=== PATIENT | female | born 2005 | race Caucasian/White ===

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

== ENCOUNTER 2025-04-07 10:55 | Outpatient (CLI) | payer OTHER, SELFPAY ==
--- NOTE | 2025-04-07 11:06 | XRR_ITS ---
PROCEDURE INFORMATION: Exam: XR Abdomen Exam date and time: 04/07/2025 11:29 AM Age: 19 years old Clinical indication: Other: Flank pain, right side; PT states she has had back pain & abdominal pain x few days. ; Additional info: R10. A1 - flank pain, right side TECHNIQUE: Imaging protocol: Radiologic exam of the abdomen. Views: Frontal supine view of the abdomen. 1 View. COMPARISON: CT abdomen pelvis w con* [id number] 01/16/2023 9:17 PM FINDINGS: Gastrointestinal tract: Nonspecific bowel gas pattern, without bowel dilatation. Predominance of gas and stool in the colon, with stool more prominent in the proximal half of the colon. Intraperitoneal space: No indication of free air. Vasculature: Tiny calcification is seen both sides of the lower pelvis, likely phleboliths. No abnormal calcifications are seen otherwise, with colon contents partially overlying the kidneys, [id number]. Bones/joints: Visualized osseous structures show no acute abnormality. XR/XR KUB [id number] IMPRESSION: Nonspecific nonobstructive bowel gas pattern. Predominance of gas and stool in the colon, with moderate stool content and particularly proximal half of the colon.
[2025-04-07 11:58] LABS: Hematocrit 41.5 % (36-47); Hemoglobin 13.30 g/dL (12.4-14.8); Mean Corpuscular HGB Conc 32.0 g/dL (30-55); Mean Corpuscular Hemoglobin 27.9 pg (27-33); Mean Corpuscular Volume 87.2 fl (85-98); Nucleated Red Blood Cells % 0 %; Platelet Count 335 10^3/cmm (157-399); Red Blood Count 4.76 10^6/uL (3.85-5.65); White Blood Count 7.95 10^3/uL (4.5-13.0)
[2025-04-07 12:24] LABS: Alanine Aminotransferase 15 U/L (0-33); Albumin Level 4.6 g/dL (3.5-5.2); Alkaline Phosphatase 71 U/L (35-105); Aspartate Amino Transferase 11 U/L (0-32); Blood Urea Nitrogen 7 mg/dL (6-20); Calcium 9.5 mg/dL (8.5-10.5); Carbon Dioxide 24 mmol/L (22-29); Chloride 103 mmol/L (98-107); Cholesterol 204 mg/dL (0-200); Globulin 3.2 g/dL (1.3-4.6); Glucose 84 mg/dL (65-115); HDL Cholesterol 56 mg/dL (60-100); Osmolality Calculated 283 mOsm/kg (285-295); Sodium 138 mmol/L (136-145); Thyroid Stimulating Hormone 0.78 uIU/mL (0.27-4.20); Total Protein 7.8 g/dL (6.6-8.7); Triglycerides 102 mg/dL (0-150)
[2025-04-07 12:26] LABS: Anion Gap 15.1 (5-19); Potassium 4.1 mmol/L (3.5-5.1)
[2025-04-07 14:04] LABS: Free T4 Free Thyroxine 1.22 ng/dL (0.93-1.60)
== END 2025-04-07 10:56 | disposition home or self-care (01) ==
PROVIDERS: PCP Nurse Practitioner; Visit Provider Nurse Practitioner
DX: Z00.00 Encounter for general adult medical examination without abnormal findings (principal); R10.A1 Flank pain, right side; R10.9 Unspecified abdominal pain; R14.0 Abdominal distension (gaseous); K56.41 Fecal impaction
CPT/HCPCS: 74018; 80053; 80061; 81000; 82306; 84439; 84443; 85025; 87086

== ENCOUNTER → 2025-05-08 09:33 | Outpatient (BNVA) | payer OTHER, SELFPAY | PROVIDERS: PCP Nurse Practitioner; Visit Provider Nurse Practitioner Women's Health | DX: Z30.011 Encounter for initial prescription of contraceptive pills (principal); Z78.9 Other specified health status | CPT/HCPCS: 81025; 84702 ==